=== PATIENT | female | born 1955 | race Caucasian/White ===

== ENCOUNTER 2019-09-16 08:33 | Inpatient (IN) | payer OTHER ==
[2019-09-12 15:18] LABS: BASOPHILS % (AUTO) 0.8 % (0.0-2.0); EOSINOPHILS % (AUTO) 2.1 % (1.0-6.0); HEMATOCRIT 42.8 % (36-46); LYMPHOCYTES # (AUTO) 2.8 K/uL (1.0-4.8); LYMPHOCYTES % (AUTO) 34.7 % (22.0-44.0); MEAN CORPUSCULAR HEMOGLOBIN 34.2 pg (26.0-34.0); MEAN CORPUSCULAR HGB CONC 35.1 G/dL (31.0-37.0); MEAN CORPUSCULAR VOLUME 97 fL (80-100); MONOCYTES # (AUTO) 0.5 K/uL (0.1-1.0); MONOCYTES % (AUTO) 6.4 % (2.0-9.0); NEUTROPHILS # (AUTO) 4.6 K/uL (1.8-7.7); PLATELET COUNT (AUTO) 304 K/uL (150-450); RED BLOOD CELL COUNT(AUTO) 4.39 MIL/uL (4.00-5.20); RED CELL DISTRIBUTION WIDTH 12.6 % (11.5-14.5)
[2019-09-12 15:29] LABS: ANION GAP 7 mmol/L (8-16); CALCIUM, TOTAL 10.1 mg/dL (8.8-10.5); CARBON DIOXIDE 31 mmol/L (22-29); CHLORIDE 101 mmol/L (98-107); CREATININE 0.89 mg/dL (0.60-1.30); GLOMERULAR FILTR. RATE CALC > 60 mL/min (>60); GLUCOSE,RANDOM 138 mg/dL (70-110); SODIUM SERUM 139 mmol/L (136-145); UREA NITROGEN, BLOOD 19 mg/dL (7-18)
[2019-09-12 15:31] LABS: PROTHROMBIN TIME 10.3 SEC (9.4-11.6)
[2019-09-12 15:35] LABS: ALANINE AMINOTRANSFERASE 41 U/L (12-78); ALBUMIN 4.5 g/dL (3.4-5.0); ALKALINE PHOSPHATASE 71 U/L (46-116); ASPARTATE AMINOTRANSFERASE 23 U/L (15-37); BILIRUBIN,TOTAL 0.8 mg/dL (0.1-1.0)
[~2019-09-16] VITALS: Ht 152.4 cm; Wt 90.9 kg
[~2019-09-16 08:33] MED LIST: ATOR20TA86 PO; DULO-8 PO; HYDR-1475 PO; LEVO100 PO; LISI-661 PO; METF-960 PO; RINGERS SOLUTION,LACTATED 1,000 ML IV ONE
[2019-09-16] MEDS ORDERED: CeFAZolin 2 GM/DEXTROSE 50 ML IV ONE (10:40)
[2019-09-16] MEDS ORDERED: OCTREOTIDE ACETATE 500 MCG in DEXTROSE 5%-WATER 97.5 ML IV ONE (10:45)
[2019-09-16] MEDS ORDERED: CeFAZolin 1 GM/DEXTROSE 50 ML IV ONE (11:00)
[2019-09-16] MEDS ORDERED: RINGERS SOLUTION,LACTATED 1,000 ML IV ONE (11:00)
[2019-09-16 11:02] LABS: GLUCOMETER DEV NAME(LOC) SDS.; GLUCOSE,POINT OF CARE 107 MG/DL (70-110)
[2019-09-16] MEDS ORDERED: SODIUM CHLORIDE 0.9% 500 ML IV ONE (11:22)
[2019-09-16] MEDS ORDERED: BUPIVACAINE HCL/PF 0.25% 30 ML VIAL ONE (12:17)
[2019-09-16] MEDS ORDERED: SODIUM CHLORIDE 0.9% 100 ML ONE (12:17)
[2019-09-16] MEDS ORDERED: BUPIVACAINE LIPOSOME/PF 1.3%-13.3MG/ML SUSPENSION 20 ML VIAL INJ ONE (12:30)
[2019-09-16] MEDS ORDERED: TRANEXAMIC ACID 1,000 MG in DEXTROSE 5%-WATER 50 ML IV ONE ×4 (13:45)
[2019-09-16] MEDS ORDERED: BACITRACIN 50,000 UNITS/VIAL ONE (13:58)
[2019-09-16] MEDS ORDERED: DiphenhydrAMINE HCL 50 MG/ML VIAL IVP PRN ×2 (15:15→19:00)
[2019-09-16] MEDS ORDERED: BISACODYL 10 MG RECTAL RECTAL SUPPOSITORY PR PRN (15:15)
[2019-09-16] MEDS ORDERED: ACETAMINOPHEN 1000 MG/ISO-OSM 100 ML IV SCH (15:15)
[2019-09-16] MEDS ORDERED: ONDANSETRON HCL 4 MG/2 ML VIAL IVP PRN ×2 (15:15→18:15)
[2019-09-16] MEDS ORDERED: KETOROLAC TROMETHAMINE 30 MG/ML VIAL IVP PRN (15:15)
[2019-09-16 16:04] VITALS: BP 145/79
[2019-09-16] MEDS: HYDROmorphone 2 MG/ML SYRINGE IVP PRN ×2 (16:30→21:33)
[2019-09-16] MEDS: SODIUM CHLORIDE 0.45% 1,000 ML IV SCH (18:08)
[2019-09-16] MEDS: FERROUS SULFATE 325 MG EC TABLET PO SCH (18:09)
[2019-09-16] MEDS ORDERED: CYCLOBENZAPRINE HCL 10 MG TABLET PO PRN (18:15)
[2019-09-16] MEDS ORDERED: HYDROmorphone 2 MG/ML SYRINGE IVP PRN (18:15)
[2019-09-16] MEDS ORDERED: CELECOXIB 200 MG CAPSULE PO ONE (18:15)
[2019-09-16] MEDS ORDERED: LIDOCAINE/PF 2% 5 ML VIAL ONE (18:43)
[2019-09-16] MEDS ORDERED: ROPIVACAINE HCL/PF 0.2% 100 ML ED PRN (18:54)
[2019-09-16 20:00] VITALS: BP 175/83
[2019-09-16] MEDS: DOCUSATE SODIUM 100 MG CAPSULE PO SCH (21:00)
[2019-09-16] MEDS: OCTREOTIDE ACETATE 500 MCG in DEXTROSE 5%-WATER 97.5 ML IV SCH (23:02)
[2019-09-17] VITALS (8 sets, daily range): BP systolic 113–133; BP diastolic 49–87
[2019-09-17] MEDS ORDERED: ACETAMINOPHEN 1000 MG/ISO-OSM 100 ML IV SCH (02:00)
[2019-09-17] MEDS ORDERED: FentaNYL CITRATE-PF 100 MCG/2 ML VIAL IVP ONE (05:24)
[2019-09-17] MEDS ORDERED: LIDOCAINE/PF 2% 5 ML VIAL IM ONE (05:24)
[2019-09-17] MEDS ORDERED: PROPOFOL 1% 20 ML VIAL IVP ONE (05:24)
[2019-09-17] MEDS ORDERED: MIDAZOLAM HCL 2 MG/2 ML VIAL IVP ONE (05:24)
[2019-09-17] MEDS ORDERED: FentaNYL CITRATE-PF 250 MCG/5 ML VIAL IVP ONE (05:24)
[2019-09-17 05:45] LABS: BASOPHILS % (AUTO) 0.5 % (0.0-2.0); EOSINOPHILS % (AUTO) 0.6 % (1.0-6.0); HEMATOCRIT 35.3 % (36-46); HEMOGLOBIN 12.6 g/dL (12.0-16.0); LYMPHOCYTES # (AUTO) 1.3 K/uL (1.0-4.8); MEAN CORPUSCULAR HEMOGLOBIN 34.7 pg (26.0-34.0); MEAN CORPUSCULAR HGB CONC 35.6 G/dL (31.0-37.0); MEAN CORPUSCULAR VOLUME 97 fL (80-100); MONOCYTES # (AUTO) 0.8 K/uL (0.1-1.0); MONOCYTES % (AUTO) 9.3 % (2.0-9.0); NEUTROPHILS # (AUTO) 6.1 K/uL (1.8-7.7); NEUTROPHILS % (AUTO) 73.6 % (40.0-70.0); PLATELET COUNT (AUTO) 249 K/uL (150-450); RED BLOOD CELL COUNT(AUTO) 3.62 MIL/uL (4.00-5.20); RED CELL DISTRIBUTION WIDTH 12.3 % (11.5-14.5)
[2019-09-17] MEDS: FERROUS SULFATE 325 MG EC TABLET PO SCH ×2 (07:48→08:00)
[2019-09-17] MEDS: SODIUM CHLORIDE 0.45% 1,000 ML IV SCH ×2 (07:48→17:41)
[2019-09-17] MEDS: HYDROmorphone 2 MG/ML SYRINGE IVP PRN ×5 (07:49→21:15)
[2019-09-17] MEDS: DOCUSATE SODIUM 100 MG CAPSULE PO SCH ×2 (07:51→09:00)
[2019-09-17] MEDS: ENOXAPARIN SODIUM 30 MG/0.3 ML PF SYRINGE SQ SCH ×2 (07:51→21:10)
[2019-09-17] MEDS: OCTREOTIDE ACETATE 500 MCG in DEXTROSE 5%-WATER 97.5 ML IV SCH ×2 (09:27→21:11)
[2019-09-17] MEDS ORDERED: OCTREOTIDE ACETATE 500 MCG in DEXTROSE 5%-WATER 97.5 ML IV SCH (09:41)
[2019-09-17] MEDS ORDERED: BISACODYL 5 MG EC TABLET PO PRN (17:45)
[2019-09-17] MEDS: OxyCODONE HCL/ACETAMINOPHEN 10-325 MG TABLET PO PRN ×2 (21:10→23:15)
[2019-09-18 00:20] VITALS: BP 120/73
[2019-09-18] MEDS: ACETAMINOPHEN 325 MG TABLET PO PRN ×2 (00:21→21:31)
[2019-09-18] MEDS: SODIUM CHLORIDE 0.45% 1,000 ML IV SCH ×2 (00:51→21:32)
[2019-09-18] MEDS: HYDROmorphone 2 MG/ML SYRINGE IVP PRN ×4 (03:21→21:31)
[2019-09-18 04:08] VITALS: BP 116/55
[2019-09-18 06:11] LABS: BASOPHILS % (AUTO) 0.3 % (0.0-2.0); EOSINOPHILS % (AUTO) 0.7 % (1.0-6.0); HEMOGLOBIN 11.7 g/dL (12.0-16.0); LYMPHOCYTES # (AUTO) 1.5 K/uL (1.0-4.8); LYMPHOCYTES % (AUTO) 18.2 % (22.0-44.0); MEAN CORPUSCULAR HEMOGLOBIN 33.5 pg (26.0-34.0); MEAN CORPUSCULAR HGB CONC 34.6 G/dL (31.0-37.0); MEAN CORPUSCULAR VOLUME 97 fL (80-100); MONOCYTES % (AUTO) 11.4 % (2.0-9.0); NEUTROPHILS # (AUTO) 5.9 K/uL (1.8-7.7); NEUTROPHILS % (AUTO) 69.4 % (40.0-70.0); PLATELET COUNT (AUTO) 226 K/uL (150-450); RED BLOOD CELL COUNT(AUTO) 3.51 MIL/uL (4.00-5.20); RED CELL DISTRIBUTION WIDTH 12.3 % (11.5-14.5)
[2019-09-18 07:29] VITALS: BP 126/68
[2019-09-18] MEDS: ENOXAPARIN SODIUM 30 MG/0.3 ML PF SYRINGE SQ SCH ×2 (07:56→21:32)
[2019-09-18] MEDS: OxyCODONE HCL/ACETAMINOPHEN 10-325 MG TABLET PO PRN ×3 (10:12→23:38)
[2019-09-18 11:22] VITALS: BP 113/60
[2019-09-18] MEDS: DiphenhydrAMINE HCL 50 MG/ML VIAL IVP PRN ×2 (14:19→23:38)
[2019-09-18 16:30] VITALS: BP 125/58
[2019-09-18 19:43] VITALS: BP 135/75
[2019-09-19 00:02] VITALS: BP 132/60
[2019-09-19 05:08] VITALS: BP 132/74
[2019-09-19] MEDS: ACETAMINOPHEN 325 MG TABLET PO PRN (06:13)
[2019-09-19] MEDS: HYDROmorphone 2 MG/ML SYRINGE IVP PRN ×2 (06:13→11:44)
[2019-09-19 06:26] LABS: BASOPHILS % (AUTO) 0.6 % (0.0-2.0); EOSINOPHILS % (AUTO) 2.4 % (1.0-6.0); HEMATOCRIT 33.4 % (36-46); HEMOGLOBIN 11.7 g/dL (12.0-16.0); LYMPHOCYTES # (AUTO) 2.5 K/uL (1.0-4.8); LYMPHOCYTES % (AUTO) 27.5 % (22.0-44.0); MEAN CORPUSCULAR HEMOGLOBIN 34.3 pg (26.0-34.0); MEAN CORPUSCULAR VOLUME 98 fL (80-100); MONOCYTES # (AUTO) 0.9 K/uL (0.1-1.0); MONOCYTES % (AUTO) 10.1 % (2.0-9.0); NEUTROPHILS # (AUTO) 5.4 K/uL (1.8-7.7); NEUTROPHILS % (AUTO) 59.4 % (40.0-70.0); PLATELET COUNT (AUTO) 220 K/uL (150-450); RED CELL DISTRIBUTION WIDTH 12.3 % (11.5-14.5)
[2019-09-19 06:41] LABS: ANION GAP 6 mmol/L (8-16); CALCIUM, TOTAL 9.1 mg/dL (8.8-10.5); CARBON DIOXIDE 29 mmol/L (22-29); CHLORIDE 104 mmol/L (98-107); GLOMERULAR FILTR. RATE CALC > 60 mL/min (>60); GLUCOSE,RANDOM 119 mg/dL (70-110); POTASSIUM 3.8 mmol/L (3.5-5.1); SODIUM SERUM 139 mmol/L (136-145); UREA NITROGEN, BLOOD 12 mg/dL (7-18)
[2019-09-19 07:41] VITALS: BP 111/48
[2019-09-19] MEDS: ENOXAPARIN SODIUM 30 MG/0.3 ML PF SYRINGE SQ SCH (08:16)
[2019-09-19] MEDS: OxyCODONE HCL/ACETAMINOPHEN 10-325 MG TABLET PO PRN (10:00)
[2019-09-19] MEDS ORDERED: PERCT PO (10:09)
[2019-09-19] MEDS ORDERED: ASPI-728 PO (10:10)
[2019-09-19] MEDS ORDERED: ACET-66 PO (10:13)
[2019-09-19 11:00] VITALS: BP 137/75
== END 2019-09-19 12:35 | disposition home or self-care (01) | DRG 470 ==
LOC: 4E 08:33 → ICU 14:47 → 4E 09-17 12:30 → 5S 09-17 16:15
PROVIDERS: ADMIT Orthopaedic Surgery; ATTEND Orthopaedic Surgery
PROC: 0SRD0J9 Replacement of Left Knee Joint with Synthetic Substitute, Cemented, Open Approach (ICD-10-PCS; principal; 2019-09-16 13:00)
DX: M17.32 Unilateral post-traumatic osteoarthritis, left knee (principal); E34.0 Carcinoid syndrome; E03.9 Hypothyroidism, unspecified; E11.9 Type 2 diabetes mellitus without complications; E78.5 Hyperlipidemia, unspecified; I10 Essential (primary) hypertension; Z88.2 Allergy status to sulfonamides; Z79.899 Other long term (current) drug therapy; Z87.891 Personal history of nicotine dependence
CPT/HCPCS: 83036; 87081; 88300; 93005; 93306; 97110; 97116; 97162; 97530; C9290; G0378; J0131; J0690; J1170; J1200; J1650; J2250; J2354; J2405; J2704; J2795; J3010; J3490; J7040; J7050; J7060; J7120; 36415-L1; 36415-TC; 71045-TC; 87635